=== PATIENT | male | born 1945 ===

== ENCOUNTER 2019-04-17 07:56 | Inpatient (IN) | payer MEDICARE, OTHER ==
[~2019-04-17] VITALS: Ht 182.9 cm; Wt 78.0 kg
[2019-04-17] VITALS (10 sets, daily range): BP systolic 100–114; BP diastolic 50–60
[2019-04-17] MEDS ORDERED: normal saline 1000ml 1,000 ML IV ONE (08:08)
[2019-04-17] MEDS ORDERED: piperacillin/tazo 3.375gm/50ml 50 ML IV ONE (08:10)
[2019-04-17] MEDS ORDERED: NORepinephrine 8mg/ 250ml NS 250 ML IV SCH (08:20)
[2019-04-17] MEDS ORDERED: ondansetron/PF 4mg/2ml inj IV ONE (08:20)
[2019-04-17 08:50] LABS: PARTIAL THROMBOPLASTIN TIME 32 SECONDS (22-32)
[2019-04-17 09:10] LABS: BASOPHILS % (AUTO) 0.3 % (0-1); EOSINOPHILS % (AUTO) 0.2 % (0-6); HEMATOCRIT 34.2 % (42.0-52.0); HEMOGLOBIN 11.6 g/dl (14.0-17.9); LYMPHOCYTES % (AUTO) 7.9 % (21-51); MEAN CORPUSCULAR HEMOGLOBIN 33.3 PG (27.0-31.0); MEAN PLATELET VOLUME 7.3 FL (7.4-10.4); MONOCYTES # (AUTO) 0.7 X10'3 (0-0.9); MONOCYTES % (AUTO) 6.2 % (2-12); NEUTROPHILS # (AUTO) 10.3 X10'3 (1.8-7.7); NEUTROPHILS % (AUTO) 85.4 % (42-75); PLATELET COUNT 92 X10'3 (140-440); RED BLOOD COUNT 3.49 X10'6 (4.70-6.10); RED CELL DISTRIBUTION WIDTH 13.8 % (11.5-14.5)
[2019-04-17 09:15] LABS: ALANINE AMINOTRANSFERASE 47 U/L (12-78); ALKALINE PHOSPHATASE 93 IU/L (46-116); ANION GAP 12 (8-16); ASPARTATE AMINO TRANSFERASE 47 U/L (10-37); BILIRUBIN,TOTAL 1.2 MG/DL (0.1-1.0); BLOOD UREA NITROGEN 30 MG/DL (7-18); BUN/CREATININE RATIO 21.3 (5.4-32.0); CALCIUM 7.1 MG/DL (8.5-10.1); CHLORIDE 112 MMOL/L (99-107); CREATININE 1.41 MG/DL (0.60-1.10); LIPASE 100 U/L (73-393); POTASSIUM 3.4 MMOL/L (3.5-5.1); SODIUM 144 MMOL/L (135-145); TOTAL CARBON DIOXIDE 20.3 MMOL/L (24-32); TOTAL PROTEIN 6.1 G/DL (6.4-8.2); eGFR 49 ML/MIN
[2019-04-17 09:18] LABS: GLUCOSE 109 MG/DL (70-104)
[2019-04-17 09:50] LABS: PLATELET ESTIMATE DECREASED; TOTAL CELLS COUNTED 100
[2019-04-17 10:13] LABS: CLARITY,URINE SLIGHTLY CLOUDY (Clear); COLOR,URINE YELLOW (Yellow); GLUCOSE, URINE NEGATIVE (Neg); KETONES,URINE NEGATIVE (Neg); LEUKOCYTE ESTERASE ,URINE SMALL (Neg); OCCULT BLOOD,URINE LARGE (Neg); PH,URINE 5.5 (4.8-8.0); PROTEIN,URINE TRACE mg/dl (Neg); UROBILINOGEN,URINE 0.2 E.U/dL (0.2-1.0)
[2019-04-17 10:15] LABS: UA COLLECTION TYPE FOLEY CATH
[2019-04-17 10:17] LABS: NITRITES, URINE NEGATIVE (Neg)
[2019-04-17 10:18] LABS: MUCUS STRANDS FEW /LPF (Neg); SQUAMOUS EPITHELIAL CELL,UR FEW /LPF (FEW)
[2019-04-17 10:19] LABS: BACTERIA,URINE 2+ /HPF (Neg); RBC,URINE 20-50 /HPF (0-2); WBC,URINE 30-50 /HPF (0-4)
[2019-04-17 10:20] LABS: WBC CLUMPS,URINE FEW /HPF (NEGATIVE)
[2019-04-17] MEDS ORDERED: NORepinephrine 8mg/ 250ml NS 250 ML IV PRN (10:47)
[2019-04-17] MEDS: normal saline 1000ml 1,000 ML IV SCH (10:47)
[2019-04-17] MEDS ORDERED: potassium Cl 20 mEq SR tablet PO PRN ×2 (10:50)
[2019-04-17] MEDS ORDERED: morphine 4 MG/ML inj SYRINge IV PRN (10:50)
[2019-04-17] MEDS ORDERED: ondansetron/PF 4mg/2ml inj IV PRN (10:50)
[2019-04-17] MEDS ORDERED: potassium Cl 20mEq/100mL bag 100 ML IV PRN ×2 (10:50)
[2019-04-17] MEDS ORDERED: morphine 2 MG/ML inj. syringe IV PRN (10:50)
[2019-04-17] MEDS ORDERED: HYDROcodone/acetaminophen 10/325mg tab PO PRN (10:50)
[2019-04-17] MEDS ORDERED: potassium CL 10mEq/100ml bag 100 ML IV PRN ×2 (10:50)
[2019-04-17] MEDS ORDERED: acetaminophen 325mg tablet PO PRN (10:50)
[2019-04-17] MEDS ORDERED: OMEP40CA13 PO (10:54)
[2019-04-17] MEDS ORDERED: AMIO200T61 PO (10:54)
[2019-04-17] MEDS ORDERED: BENA10TA74 PO (10:54)
[2019-04-17] MEDS ORDERED: ASPI81TA52 PO (10:54)
--- NOTE | 2019-04-17 11:18 | NUR ---
DECREASED LEVOPHED FROM 8MCG/MIN TO 6MCG/MIN
--- NOTE | 2019-04-17 11:24 | NUR ---
DECREASED DOSE OF LEVOPHED FROM 6MCG/MIN TO 4MCG/MIN. BP: 112/52, MAP: 73
[2019-04-17] MEDS ORDERED: FISH12002 PO (11:36)
[2019-04-17] MEDS ORDERED: MULT-933 PO (11:36)
[2019-04-17] MEDS ORDERED: OMEP20CA11 PO (11:36)
[2019-04-17] MEDS ORDERED: CefTRIAXone/D5W-Rocephin 1gm 50 ML IV ONE (13:35)
[2019-04-17] MEDS: heparin, porcine 5000 units/ml vial SQ SCH (20:44)
[2019-04-17] MEDS: docusate sod 100mg capsule PO SCH (20:45)
[2019-04-17] MEDS: sennosides/docusate sodium tablet PO SCH (20:45)
[2019-04-18] VITALS (20 sets, daily range): BP systolic 92–131; BP diastolic 54–71
--- NOTE | 2019-04-18 06:00 | NUR ---
RN Note -Shift Summary Pt rested throughout the night. Has denied pain and discomfort. SBP has stayed above 100.
[2019-04-18 06:07] LABS: BASOPHILS % (AUTO) 0.4 % (0-1); EOSINOPHILS # (AUTO) 0.3 X10'3 (0-0.9); EOSINOPHILS % (AUTO) 3.2 % (0-6); HEMATOCRIT 35.9 % (42.0-52.0); HEMOGLOBIN 12.5 g/dl (14.0-17.9); LYMPHOCYTES # (AUTO) 0.9 X10'3 (1.1-4.8); LYMPHOCYTES % (AUTO) 10.2 % (21-51); MEAN CORPUSCULAR HGB CONC 34.7 g/dL (33.0-36.5); MEAN CORPUSCULAR VOLUME 97.8 FL (78-98); MEAN PLATELET VOLUME 7.5 FL (7.4-10.4); MONOCYTES # (AUTO) 0.9 X10'3 (0-0.9); MONOCYTES % (AUTO) 10.6 % (2-12); NEUTROPHILS # (AUTO) 6.6 X10'3 (1.8-7.7); NEUTROPHILS % (AUTO) 75.6 % (42-75); PLATELET COUNT 83 X10'3 (140-440); RED BLOOD COUNT 3.67 X10'6 (4.70-6.10); RED CELL DISTRIBUTION WIDTH 13.7 % (11.5-14.5); WHITE BLOOD COUNT 8.7 X10'3 (4.5-11.0)
[2019-04-18 06:43] LABS: ALANINE AMINOTRANSFERASE 51 U/L (12-78); ALBUMIN 3.2 G/DL (3.4-5.0); ALBUMIN/GLOBULIN RATIO 0.9 (1.1-1.5); ALKALINE PHOSPHATASE 108 IU/L (46-116); ANION GAP 8 (8-16); ASPARTATE AMINO TRANSFERASE 55 U/L (10-37); BILIRUBIN,TOTAL 0.9 MG/DL (0.1-1.0); BLOOD UREA NITROGEN 21 MG/DL (7-18); BUN/CREATININE RATIO 16.7 (5.4-32.0); CHLORIDE 110 MMOL/L (99-107); CREATININE 1.26 MG/DL (0.60-1.10); GLUCOSE 93 MG/DL (70-104); MAGNESIUM 1.9 MG/DL (1.5-2.4); PHOSPHORUS 2.5 MG/DL (2.3-4.5); POTASSIUM 4.2 MMOL/L (3.5-5.1); SODIUM 143 MMOL/L (135-145); TOTAL CARBON DIOXIDE 24.6 MMOL/L (24-32); TOTAL PROTEIN 6.9 G/DL (6.4-8.2); eGFR 56 ML/MIN
[2019-04-18 07:44] LABS: PLATELET ESTIMATE NORMAL; TOTAL CELLS COUNTED 100
[2019-04-18] MEDS: docusate sod 100mg capsule PO SCH ×2 (07:59→20:05)
[2019-04-18] MEDS: normal saline 1000ml 1,000 ML IV SCH (07:59)
[2019-04-18] MEDS: CefTRIAXone/D5W-Rocephin 1gm 50 ML IV SCH (07:59)
[2019-04-18] MEDS: heparin, porcine 5000 units/ml vial SQ SCH ×2 (08:00→20:00)
[2019-04-18] MEDS ORDERED: NORepinephrine 8mg/ 250ml NS 250 ML IV PRN (09:48)
--- NOTE | 2019-04-18 11:27 | NUR ---
Initial: Pt admit w/ acute severe sepsis likely urinary source per MD. Eating per RN w/ PO meals documentation pending. To transfer out of critical care since more stable per MD. No edema/wounds. Will monitor for PO diet hx and additional protein needs this admit. Rec: 1. continue regular diet 2. monitor for additional protein needs pending PO hx 3. wt per rx Addendum: 04/18/19 at [address] Amended: Links added.
--- NOTE | 2019-04-18 16:25 | NUR ---
Pt transferred to 3012C per W/C, instable condition. Report given to RN (Lorenzo).
--- NOTE | 2019-04-18 16:30 | NUR ---
Patient in room CICU 2007. I have received report from FINANCE TEACHER and had the opportunity to ask questions and assume patient care.
--- NOTE | 2019-04-18 16:40 | NUR ---
Pt arrived to unit room: 3012C. Vitals stable, Pt stable, alert and oriented. Oriented Pt to room and call light.
--- NOTE | 2019-04-18 18:00 | NUR ---
Patient in room PCU 3012. I have received report from LISANDRO Ventura and had the opportunity to ask questions and assume patient care.
--- NOTE | 2019-04-18 18:10 | NUR ---
Problems reprioritized. Patient report given, questions answered & plan of care reviewed with Jannet MCMAHON.
--- NOTE | 2019-04-18 18:10 | NUR ---
Patient in room PCU 3012. I have received report from LISANDRO Ventura and had the opportunity to ask questions and assume patient care.
[2019-04-18] MEDS: lactobacillus rhamnosus 10,000 MMU CELLS/CAPSULE PO SCH (20:04)
[2019-04-18] MEDS: sennosides/docusate sodium tablet PO SCH (20:05)
[2019-04-18] MEDS: acetaminophen 325mg tablet PO PRN (20:14)
[2019-04-19 02:00] VITALS: BP 142/74
--- NOTE | 2019-04-19 03:30 | NUR ---
Pt c/o sudden back pain, RN assessed pt's upper body and back, no sign of bruising. Pt's advised that pt has been having back pain for the past 3 weeks. RN provided PRN pain medication to patient
[2019-04-19] MEDS: acetaminophen 325mg tablet PO PRN (03:38)
[2019-04-19 05:57] LABS: BASOPHILS % (AUTO) 0.4 % (0-1); EOSINOPHILS # (AUTO) 0.3 X10'3 (0-0.9); EOSINOPHILS % (AUTO) 3.5 % (0-6); HEMATOCRIT 32.6 % (42.0-52.0); HEMOGLOBIN 11.3 g/dl (14.0-17.9); LYMPHOCYTES % (AUTO) 13.1 % (21-51); MEAN CORPUSCULAR HEMOGLOBIN 33.5 PG (27.0-31.0); MEAN CORPUSCULAR HGB CONC 34.6 g/dL (33.0-36.5); MEAN CORPUSCULAR VOLUME 96.9 FL (78-98); MEAN PLATELET VOLUME 7.7 FL (7.4-10.4); MONOCYTES # (AUTO) 0.9 X10'3 (0-0.9); MONOCYTES % (AUTO) 11.8 % (2-12); NEUTROPHILS # (AUTO) 5.4 X10'3 (1.8-7.7); NEUTROPHILS % (AUTO) 71.2 % (42-75); PLATELET COUNT 84 X10'3 (140-440); RED BLOOD COUNT 3.36 X10'6 (4.70-6.10); RED CELL DISTRIBUTION WIDTH 13.7 % (11.5-14.5); WHITE BLOOD COUNT 7.5 X10'3 (4.5-11.0)
[2019-04-19 06:00] VITALS: BP 106/49
--- NOTE | 2019-04-19 06:00 | NUR ---
Patient in room PCU 3012. I have received report from Jannet MCMAHON and had the opportunity to ask questions and assume patient care.
--- NOTE | 2019-04-19 06:01 | NUR ---
Problems reprioritized. Patient report given, questions answered & plan of care reviewed with LISANDRO Ventura.
--- NOTE | 2019-04-19 06:10 | NUR ---
Preceptee documentation: I have reviewed and agree with all interventions, assessments performed and documented by LISANDRO Priest.
[2019-04-19 06:37] LABS: ALANINE AMINOTRANSFERASE 45 U/L (12-78); ALBUMIN 2.7 G/DL (3.4-5.0); ALBUMIN/GLOBULIN RATIO 0.8 (1.1-1.5); ALKALINE PHOSPHATASE 133 IU/L (46-116); ANION GAP 12 (8-16); ASPARTATE AMINO TRANSFERASE 47 U/L (10-37); BILIRUBIN,TOTAL 0.8 MG/DL (0.1-1.0); BLOOD UREA NITROGEN 19 MG/DL (7-18); BUN/CREATININE RATIO 16.1 (5.4-32.0); CALCIUM 7.8 MG/DL (8.5-10.1); CHLORIDE 109 MMOL/L (99-107); CREATININE 1.18 MG/DL (0.60-1.10); GLUCOSE 98 MG/DL (70-104); MAGNESIUM 1.9 MG/DL (1.5-2.4); SODIUM 143 MMOL/L (135-145); TOTAL CARBON DIOXIDE 21.7 MMOL/L (24-32); TOTAL PROTEIN 6.1 G/DL (6.4-8.2); eGFR 60 ML/MIN
[2019-04-19] MEDS: CefTRIAXone/D5W-Rocephin 1gm 50 ML IV SCH (07:55)
[2019-04-19] MEDS: lactobacillus rhamnosus 10,000 MMU CELLS/CAPSULE PO SCH (07:55)
[2019-04-19] MEDS: docusate sod 100mg capsule PO SCH (07:55)
[2019-04-19] MEDS: heparin, porcine 5000 units/ml vial SQ SCH (08:00)
[2019-04-19 11:00] VITALS: BP 107/57
[2019-04-19 15:00] VITALS: BP 123/63
[2019-04-19] MEDS ORDERED: LEVO500T2 PO ×2 (16:34→16:47)
--- NOTE | 2019-04-19 18:00 | NUR ---
Pt DC'd home with . Pt's vitals WNL, Pt stable and alert and oriented. IV removed, canula intact. Tele-box removed and returned tele-tech. DC paperwork gone over with Pt and . Allowed both to ask questions concerning DC paper work and then answered them. New prescriptions called into [facility] pharmacy in [facility]. Pt's belongings gathered and sent with Pt. Pt wheeled down to lobby in wheel chair by nurse. Pt and left in private vehicle for home.
[2019-04-20] MEDS ORDERED: pantoprazole 40mg Tablet.DR PO SCH (07:30)
[2019-04-20] MEDS ORDERED: multivitamins, therapeutics tablet PO SCH (08:00)
[2019-04-20] MEDS ORDERED: aspirin 81mg tablet.DR PO SCH (08:00)
[2019-04-20] MEDS ORDERED: OMEGA-3/DHA/EPA/FISH OIL 1 EACH CAPSULE.DR PO SCH (08:00)
[2019-04-20] MEDS ORDERED: lisinopril 10 MG tablet PO SCH (08:00)
[2019-04-20] MEDS ORDERED: amiodarone 100mg tablet PO SCH (08:00)
== END 2019-04-19 18:28 | disposition home or self-care (01) | DRG 871 ==
LOC: ER 07:57 → ED HOLD 10:47 → CICU 2S 12:55 → PCU 3S 04-18 17:33
PROVIDERS: ADMIT Internal Medicine Critical Care Medicine; ATTEND Internal Medicine Critical Care Medicine
DX: A41.59 Other Gram-negative sepsis (principal); G93.41 Metabolic encephalopathy; N39.0 Urinary tract infection, site not specified; N17.9 Acute kidney failure, unspecified; R65.20 Severe sepsis without septic shock; E86.9 Volume depletion, unspecified; I10 Essential (primary) hypertension; I25.10 Atherosclerotic heart disease of native coronary artery without angina pectoris; I71.4 Abdominal aortic aneurysm, without rupture; K80.20 Calculus of gallbladder without cholecystitis without obstruction; I95.9 Hypotension, unspecified; B96.1 Klebsiella pneumoniae [K. pneumoniae] as the cause of diseases classified elsewhere; Z79.82 Long term (current) use of aspirin; Z79.899 Other long term (current) drug therapy
CPT/HCPCS: 36415; 70450; 71045; 74176; 80053; 81001; 82948; 83605; 83690; 83735; 84100; 84145; 85025; 85610; 85730; 87040; 87081; 87088; 93005; 97112; 97116; 97161; 97530; G0378; J0696; J1644; J2405; J2543